=== PATIENT | female | born 1975 | race Caucasian/White ===

== ENCOUNTER 2020-08-24 23:43 | Emergency (ER) | payer BC, SELFPAY ==
[2020-08-25] MEDS ORDERED: MORPHINE 4 MG/ML SYR ONE (00:24)
[2020-08-25] MEDS ORDERED: ONDANSETRON 4 MG/2 ML VIAL ONE (00:25)
[2020-08-25 00:47] LABS: Albumin 3.8 g/dL (3.4-5.0); Bilirubin Direct 0.1 mg/dL (0-0.2); Bilirubin Total 0.4 mg/dL (0.2-1.0); Potassium 3.3 mmol/L (3.5-5.1); Protein, Total 7.1 g/dL (6.4-8.2)
[2020-08-25] MEDS ORDERED: MORPHINE 2 MG/ML SYR ONE ×2 (01:11→01:26)
[2020-08-25 01:48] LABS: Absolute Lymphocytes (CBC) 1.3 K/uL (0.7-4.9); Basophils % 0.4 % (0-1.3); Hematocrit 34.9 % (36.0-45.0); Lymphocytes % 11.7 % (15.3-44.8); MPV 8.1 fL (7.6-11.3); RBC Red Blood Cell Count 4.57 M/uL (3.86-4.86)
[2020-08-25] MEDS ORDERED: NA CHLORIDE 0.9% 1,000 ML ONE (02:50)
[2020-08-25] MEDS ORDERED: TAMSULOSIN 0.4 MG SR CAP ONE (02:50)
[2020-08-25] MEDS ORDERED: KETOROLAC 30 MG/ML INJ ONE (02:50)
--- NOTE | 2020-08-25 03:12 | EDPHYS ---
Physician Documentation [facility] Name: Lori Sarkar Age: 45 yrs Sex: Female : 1975 Arrival Date: 08/24/2020 Time: 23:49 Bed 20 Private MD: ED Physician Ventura Crump HPI: 08/25 00:04 This 45 yrs old Female presents to ER via EMS with complaints of Pelvic Pain, jmm Urinary Problem. 00:04 Onset: The symptoms/episode began/occurred acutely, just prior to arrival. Associated jmm signs and symptoms: Pertinent positives:. This is a 45 year old female that presents to the ED with complaints of pelvic pain and dysuria beginning just prior to arrival. Patient states having kidney stones in the past but not as intense as tonight. . Historical: - Allergies: 08/24 23:56 Sulfa (Sulfonamide Antibiotics); sg - PMHx: 08/25 00:33 fertility issues; Ectopic x2; sg - PSHx: 08/24 23:56 Gastric Bypass; sg - Immunization history:: Adult Immunizations. - Social history:: Smoking status: Patient denies any tobacco usage or history of. ROS: 08/25 00:04 Constitutional: Negative for fever, chills, and weight loss, Cardiovascular: Negative jmm for chest pain, palpitations, and edema, Respiratory: Negative for shortness of breath, cough, wheezing, and pleuritic chest pain. Abdomen/GI: Positive for abdominal pain. : Positive for pelvic pain. All other systems are negative. Exam: 00:04 Head/Face: atraumatic. Eyes: EOMI, no conjunctival erythema appreciated ENT: Moist jmm Mucus Membranes Neck: Trachea midline, Supple Chest/axilla: Normal chest wall appearance and motion. Cardiovascular: Regular rate and rhythm. No edema appreciated Respiratory: Normal respirations, no respiratory distress appreciated Abdomen/GI: Non distended, soft Back: Normal ROM Skin: General appearance color normal MS/ Extremity: Moves all extremities, no obvious deformities appreciated, no edema noted to the lower extremities Neuro: Awake and alert, normal gait Psych: Behavior is normal, Mood is normal, Patient is cooperative and pleasant 00:04 Constitutional: The patient appears alert, awake, in obvious pain. Vital Signs: 08/24 23:53 BP 146 / 77; Pulse 72; Resp 18; Temp 97.7; Pulse Ox 99% on R/A; Pain 4/10; sg 08/25 01:42 BP 170 / 94; Pulse 56; Resp 16; Pulse Ox 99% on R/A; sg 02:40 BP 172 / 92; Pulse 60; Resp 17; Temp 97.9; Pulse Ox 96% on R/A; Pain 6/10; sg 04:16 BP 139 / 96; Pulse 79; Resp 18; Pulse Ox 100% on R/A; Pain 3/10; lp1 MDM: 00:[address] [facility] 03:04 Data reviewed: vital signs, nurses notes. Counseling: I had a detailed discussion with bryant the patient and/or guardian regarding: the historical points, exam findings, and any diagnostic results supporting the discharge/admit diagnosis, lab results, radiology results, the need for outpatient follow up, to return to the emergency department if symptoms worsen or persist or if there are any questions or concerns that arise at home. ED course: CT reveals distal ureteral stone. Labs otherwise unremarkable. Pain decreased in the ED. Patient is advised to follow up with urology for further evaluation. Patient is otherwise given strict return precautions. Patient understood and agrees with the plan of care. . 08/25 00:04 Order name: Basic Metabolic Panel; Complete Time: 00:55 08/25 00:04 Order name: CBC with Diff; Complete Time: 01:58 08/25 00:04 Order name: Hepatic Function; Complete Time: 00:55 08/25 00:04 Order name: Lipase; Complete Time: 00:55 08/25 00:04 Order name: Test, Serum; Complete Time: 00:42 08/25 00:22 Order name: CT Abd/Pelvis - IV Contrast Only [facility] 08/25 00:04 Order name: IV Saline Lock; Complete Time: 00:04 08/25 00:04 Order name: Labs collected and sent; Complete Time: 00:04 sg Administered Medications: 00:23 Drug: morphine 4 mg Route: IVP; Site: left antecubital; sg 00:48 Follow up: Response: No adverse reaction; Pain is decreased; RASS: Drowsy (-1) sg 00:23 Drug: Zofran (Ondansetron) 4 mg Route: IVP; Site: left antecubital; sg 00:48 Follow up: Response: No adverse reaction sg 01:20 Drug: morphine 4 mg Route: IVP; Site: left antecubital; sg 01:59 Follow up: Response: No adverse reaction; Pain is unchanged, physician notified; RASS: sg Drowsy (-1) 02:47 Drug: NS 0.9% 1000 ml Route: IV; Rate: 1 bolus; Site: left antecubital; sg 04:18 Follow up: IV Status: Completed infusion; IV Intake: 800ml lp1 02:47 Drug: Ketorolac 30 mg Route: IVP; Site: left antecubital; sg 04:18 Follow up: Response: No adverse reaction lp1 02:48 Drug: Flomax 0.4 mg Route: PO; sg 04:18 Follow up: Response: No adverse reaction lp1 Disposition: 06:52 Co-signature as Attending Physician, Ventura Crump MD. [email or web address] Disposition: 08/25/20 03:11 Discharged to Home. Impression: Calculus of ureter. - Condition is Stable. - Discharge Instructions: Kidney Stones. - Prescriptions for Cephalexin 500 mg Oral Capsule - take 1 capsule by ORAL route every 12 hours for 10 days; 20 capsule. Tylenol- Codeine #3 300-30 mg Oral Tablet - take 2 tablet by ORAL route every 6 hours As needed; 6 tablet. Flomax 0.4 mg Oral Capsule, Sust. Release 24 hr - take 1 capsule by ORAL route once daily 1/2 hour following the same meal each day; 30 capsule. - Medication Reconciliation Form, Thank You Letter, Antibiotic Education, Prescription Opioid Use form. - Follow up: Private Physician; When: 2 - 3 days; Reason: Recheck today's complaints, Continuance of care, Re-evaluation by your physician. Signatures: Dispatcher [employer] Pio Tay RN RN sg Ghassan Leblanc PA PA jmm Pena, Laura, RN RN 1 Ventura Crump MD MD [email or web address] Corrections: (The following items were deleted from the chart) 05:18 03:11 08/25/2020 03:11 Discharged to Home. Impression: Calculus of ureter. Condition is lp1 Stable. Discharge Instructions: Kidney Stones. Prescriptions for Cephalexin 500 mg Oral Capsule - take 1 capsule by ORAL route every 12 hours for 10 days; 20 capsule, Tylenol-Codeine #3 300-30 mg Oral Tablet - take 2 tablet by ORAL route every 6 hours As needed; 6 tablet, Flomax 0.4 mg Oral Capsule, Sust. Release 24 hr - take 1 capsule by ORAL route once daily 1/2 hour following the same meal each day; 30 capsule. and Forms are Medication Reconciliation Form, Thank You Letter, Antibiotic Education, Prescription Opioid Use. Follow up: Private Physician; When: 2 - 3 days; Reason: Recheck today's complaints, Continuance of care, Re-evaluation by your physician. bryant
--- NOTE | 2020-08-25 03:12 | ER ---
[facility] Name: Lori Sarkar Age: 45 yrs Sex: Female : 1975 Arrival Date: 08/24/2020 Time: 23:49 Bed 20 Private MD: Diagnosis: Calculus of ureter Presentation: 08/24 23:53 Chief complaint: EMS states: pt c/o R side pelvic pain and R groin pain for 1-2 hours sg [employer], pt reports inability to urinate that began today as well, pt reports having a IUD that is , inserted by . Coronavirus screen: Client denies travel out of the [place] in the last 14 days. At this time, the client does not indicate any symptoms associated with coronavirus-19. Ebola Screen: Patient negative for fever greater than or equal to 101.5 degrees Fahrenheit, and additional compatible Ebola Virus Disease symptoms Patient denies exposure to infectious person. Patient denies travel to an Ebola-affected area in the 21 days before illness onset. No symptoms or risks identified at this time. Initial Sepsis Screen: Does the patient meet any 2 criteria? No. Patient's initial sepsis screen is negative. Does the patient have a suspected source of infection? No. Patient's initial sepsis screen is negative. Risk Assessment: Do you want to hurt yourself or someone else? Patient reports no desire to harm self or others. Onset of symptoms was August 24, 2020. Care prior to arrival: None. Transition of care: patient was not received from another setting of care. 23:53 Method Of Arrival: EMS: [facility] sg 23:53 Acuity: NEELA 2 sg Historical: - Allergies: 23:56 Sulfa (Sulfonamide Antibiotics); sg - PMHx: 08/25 00:33 fertility issues; Ectopic x2; sg - PSHx: 08/24 23:56 Gastric Bypass; sg - Immunization history:: Adult Immunizations. - Social history:: Smoking status: Patient denies any tobacco usage or history of. Screenin/26 00:00 Abuse screen: Denies threats or abuse. Denies injuries from another. Nutritional sg screening: No deficits noted. Tuberculosis screening: No symptoms or risk factors identified. Never had TB. Fall Risk None identified. Assessment: 00:00 General: Appears in no apparent distress. uncomfortable, ill, unkempt, well nourished, sg Behavior is cooperative, fussy, restless. Pain: Complains of pain in groin and right femoral area Pain radiates to right mid back Quality of pain is described as aching, sharp. Neuro: Level of Consciousness is awake, alert, obeys commands, Oriented to person, place, time, Speech is normal, Facial symmetry appears normal. Cardiovascular: Patient's skin is warm and dry. Chest pain is denied. Respiratory: Airway is patent Respiratory effort is even, unlabored, Respiratory pattern is regular, symmetrical. GI: No signs and/or symptoms were reported involving the gastrointestinal system. : Reports inability to void, completely. pain in right in suprapubic area lower quadrant(s) in lower back and groin. EENT: No signs and/or symptoms were reported regarding the EENT system. Derm: Skin is pink, warm \T\ dry. Musculoskeletal: Circulation, motion, and sensation intact. Range of motion: intact in all extremities. 00:11 Reassessment: pt ambulatory to ED restroom but reports was unable to obtain a sample, sg reports small amount of urine output. 00:15 Reassessment: pt back in exam room, pt observed to be pacing in the exam room, reports sg pain /, Joy CONTRERAS at bedside assessing pt, pt medicated as ordered. Reassessment: pt calm, relaxed, laying supine in bed at this time, awaiting new orders, lab reports blood specimen hemolyzed, a recollect of the CBC has been ordered, will obtain new specimen at this time. 04:17 Reassessment: Patient appears in no apparent distress at this time. Patient is alert, lp1 oriented x 3, equal unlabored respirations, skin warm/dry/pink. Patient demonstrates understanding of discharge instructions and medications prescribed. 04:18 Reassessment: Patient waiting for ride to arrive for discharge. lp1 Vital Signs: 08/24 23:53 BP 146 / 77; Pulse 72; Resp 18; Temp 97.7; Pulse Ox 99% on R/A; Pain 4/10; sg 08/25 01:42 BP 170 / 94; Pulse 56; Resp 16; Pulse Ox 99% on R/A; sg 02:40 BP 172 / 92; Pulse 60; Resp 17; Temp 97.9; Pulse Ox 96% on R/A; Pain 6/10; sg 04:16 BP 139 / 96; Pulse 79; Resp 18; Pulse Ox 100% on R/A; Pain 3/10; lp1 ED Course: 08/24 23:49 Patient arrived in ED. bb 23:53 Arm band placed on. sg 23:55 Triage completed. sg 08/25 00:00 Initial lab(s) drawn, by me, sent to lab. Inserted saline lock: 20 gauge in left sg antecubital area, using aseptic technique. Blood collected. 00:08 Ghassan Leblanc PA is PHCP. [facility] 00:08 Ventura Crump MD is Attending Physician. [facility] 00:09 Pio Kessler RN is Primary Nurse. sg 01:23 CT Abd/Pelvis - IV Contrast Only In Process Unspecified. EDMS 02:48 Awaiting disposition. sg 02:49 Report given to MILVIA Jasso- Charge Nurse. sg 04:17 No provider procedures requiring assistance completed. IV discontinued, No lp1 redness/swelling at site. Pressure dressing applied. Administered Medications: 00:23 Drug: morphine 4 mg Route: IVP; Site: left antecubital; sg 00:48 Follow up: Response: No adverse reaction; Pain is decreased; RASS: Drowsy (-1) sg 00:23 Drug: Zofran (Ondansetron) 4 mg Route: IVP; Site: left antecubital; sg 00:48 Follow up: Response: No adverse reaction sg 01:20 Drug: morphine 4 mg Route: IVP; Site: left antecubital; sg 01:59 Follow up: Response: No adverse reaction; Pain is unchanged, physician notified; RASS: sg Drowsy (-1) 02:47 Drug: NS 0.9% 1000 ml Route: IV; Rate: 1 bolus; Site: left antecubital; sg 04:18 Follow up: IV Status: Completed infusion; IV Intake: 800ml lp1 02:47 Drug: Ketorolac 30 mg Route: IVP; Site: left antecubital; sg 04:18 Follow up: Response: No adverse reaction lp1 02:48 Drug: Flomax 0.4 mg Route: PO; sg 04:18 Follow up: Response: No adverse reaction lp1 Intake: 04:18 IV: 800ml; Total: 800ml. lp1 Outcome: 03:11 Discharge ordered by . bryant 04:17 Discharged to home ambulatory, with friend. lp1 04:17 Condition: good 04:17 Discharge instructions given to patient, Instructed on discharge instructions, follow up and referral plans. medication usage, Demonstrated understanding of instructions, follow-up care, medications, Prescriptions given X 3. 05:18 Patient left the ED. lp1 Signatures: Dispatcher [employer] Pio Tay RN RN Ghassan Ball PA PA jmm Ballard, Brenda, RN RN bb Zena Tobin, MILVIA RN lp1 Corrections: (The following items were deleted from the chart) 01:59 01:40 Response: No adverse reaction; Pain is unchanged, physician notified nick romero
[2020-08-25 05:27] VITALS: TEMP 97.9
[2020-08-25 05:29] VITALS: BP 139/96; O2SAT 100
--- NOTE | 2020-08-25 21:44 | RAD REPORT ---
EXAM DESCRIPTION: CT - Abdomen Pelvis W Contrast - 08/25/2020 6:46 am CLINICAL HISTORY: Lower abdominal pain, pelvic pain TECHNIQUE: Contiguous axial images obtained through the abdomen and pelvis following the uneventful administration of IV contrast. Coronal and sagittal reformatted images were provided. This exam was performed according to our departmental dose-optimization program, which includes autom ated exposure control, adjustment of the mA and/or kV according to patient size and/or use of iterati ve reconstruction technique. COMPARISON: None available for comparison. FINDINGS: Lung bases: Minimal right basilar subsegmental atelectasis/pleural parenchymal scar. Liver: Unremarkable Gallbladder and biliary system: Unremarkable Pancreas: Unremarkable Spleen: Unremarkable Adrenals: Unremarkable Kidneys: Mild to moderate right hydroureteronephrosis with delayed cortical nephrogram, perinephric a nd periureteral stranding. 3 mm distal right ureteral calculus (series 601 image 78, series 602 image 77 and series 603 image 54). 8mm left renal cortical hypodensity which is too small to characterize. Bowel: Prior gastric bypass. Moderate stool. No obstruction. No appreciable mucosal thickening. Appendix: Normal caliber appendix. No findings to suggest acute appendicitis. Urinary bladder: Unremarkable Reproductive: Intrauterine device at the lower uterine segment. 2 cm left ovarian cyst. The right ova ry is unremarkable as visualized. Lymph nodes: No pathologically enlarged lymph nodes. Peritoneum: No focal fluid collection. No free air. Vessels: No abdominal aortic aneurysm. Abdominal wall: Unremarkable Bones: Multilevel spondylosis. No acute fracture. 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 IMPRESSION: 1. Mildly to moderately obstructing 3 mm distal right ureteral calculus. 2. 2 cm benign appearing left ovarian cyst. No follow-up imaging is recommended. Reference: J Am Demario Radiol 2013;10:675-681 3. Intrauterine device located at the lower uterine segment. 4. Other findings as above. Electronically signed by: Reagan Reeves MD 08/25/2020 1:54 AM CDT Due to temporary technical issues with the PACS/Fluency reporting system, reports are being signed by the in house radiologist without review as a courtesy to ensure prompt reporting. The interpreting r adiologist is fully responsible for the content of the report.
== END 2020-08-25 05:18 | disposition home or self-care (01) ==
LOC: ER 23:43
DX: N20.1 Calculus of ureter (principal); Z88.2 Allergy status to sulfonamides; Z98.84 Bariatric surgery status
CPT/HCPCS: 36415; 74177; 80048; 80076; 83690; 84703; 85025; 96361; 96374; 96375; 99284; J2270; J2405; J7030; Q9967

== ENCOUNTER 2023-06-08 01:28 | Emergency (ER) | payer SELFPAY ==
--- OUTSIDE RECORDS SUMMARY | 2023-06-08 01:31 | XMS REPORT | Continuity of Care Document ---
:1975 Author Organization [facility] t Address [address] [place] [address] Care Team Providers Name Role Phone Kleber Attending Clinician Unavailable Kleber Admitting Clinician Unavailable Problems This patient has no known problems. Allergies, Adverse Reactions, Alerts This patient has no known allergies or adverse reactions. Medications This patient has no known medications. Procedures This patient has no known procedures. Encounters Start End Encounter Admission Attending Care Care Encounter Source Date/Time Date/Time Type Type Clinicians Facility Department ID 2022-08-06 2022-08-06 Outpatient Rosibel_ DOUGLAS AO [id number] Fariha 00:00:00 00:00:00 Bibi [id number] Orth ope dic Sports Medicin e Results This patient has no known results.
[2023-06-08 02:26] LABS: Absolute Lymphocytes (CBC) 1.6 K/uL (0.7-4.9); Hematocrit 34.4 % (36.0-45.0); Lymphocytes % 25.2 % (15.3-44.8); MCV 76.1 fL (80-100); MPV 7.3 fL (7.6-11.3); RBC Red Blood Cell Count 4.52 M/uL (3.86-4.86)
[2023-06-08 02:28] LABS: Protime INR 1.08
[2023-06-08 02:38] LABS: ALT/SGPT 25 U/L (13-56); AST/SGOT 19 U/L (15-37); Albumin 3.5 g/dL (3.4-5.0); Alkaline Phosphatase 87 U/L (45-117); BUN Blood Urea Nitrogen 19 mg/dL (7-18); Bicarbonate 27 mEq/L (21-32); Bilirubin Total 0.3 mg/dL (0.2-1.0); Glomerular Filtration Rate 85 ml/min (=/>90); Glucose Level 143 mg/dL (74-106); Potassium 2.9 mEq/L (3.5-5.1); Protein, Total 7.2 g/dL (6.4-8.2); Sodium Level 138 mEq/L (136-145)
[2023-06-08 02:48] LABS: Bilirubin Direct < 0.1 mg/dL (0-0.2); Bilirubin Indirect, Calculated ND mg/dL (0.2-0.8)
[2023-06-08] MEDS ORDERED: HALOPERIDOL LACT 5 MG/ML INJ ONE (03:07)
[2023-06-08] MEDS ORDERED: KCL 20 MEQ/100 mL IVPB 100 ML IV ONE (04:03)
[2023-06-08] MEDS ORDERED: NA CHLORIDE 0.9% 1,000 ML ONE (04:03)
--- NOTE | 2023-06-08 08:31 | EDPHYS ---
Physician Documentation [facility] Name: Lori Sarkar Age: 47 yrs Sex: Female : 1975 Arrival Date: 06/08/2023 Time: 01:28 Bed 19 Private MD: ED Physician Miky Minor HPI: 06/08 01:40 This 47 yrs old Female presents to ER via Unassigned with complaints of Psych Problem. cp 01:40 The patient presents to the emergency department with psychosis, has experienced cp auditory hallucinations, voice of her brother telling her boyfriend wants to hurt her, a history of substance abuse, Type: methamphetamines, the amount of abuse is unknown. 01:40 Onset: The symptoms/episode began/occurred yesterday. cp 01:40 Associated signs and symptoms: Pertinent positives; hallucinations, substance abuse, cp Pertinent negatives: abdominal pain, chest pain, fever, headache, homicidal ideation, paranoia, suicide ideation. Patient admits to ingesting unknown amount of methamphetamine and consuming an alcoholic drink yesterday afternoon. 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 - Social history:: Smoking status: Patient reports the use of cigarette tobacco products, unknown amount. ROS: 01:45 Constitutional: Negative for body aches, chills, fever, poor PO intake. cp 01:45 Eyes: Negative for injury, pain, redness, and discharge. cp 01:45 Neuro: Negative for dizziness, headache, seizure activity, syncope. cp 01:45 Psych: Positive for drug dependence, auditory hallucinations, Negative for visual hallucinations, homicidal ideation, suicide gesture, suicidal ideation. 01:45 ENT: Negative for drainage from ear(s), ear pain, sore throat, difficulty swallowing, cp difficulty handling secretions. 01:45 Cardiovascular: Negative for chest pain, edema, palpitations. 01:45 Respiratory: Negative for cough, shortness of breath, wheezing. 01:45 Abdomen/GI: Negative for abdominal pain, nausea, vomiting, and diarrhea. 01:45 : Negative for urinary symptoms. 01:45 All other systems are negative. Exam: 01:42 ECG was reviewed by the Attending Physician. cp 01:50 Constitutional: The patient appears in no acute distress, alert, awake, cp non-diaphoretic, non-toxic, well developed, well nourished. 01:50 Head/Face: Normocephalic, atraumatic. cp 01:50 Eyes: Periorbital structures: appear normal, Pupils: equal, round, and reactive to light and accomodation, Conjunctiva: normal, no exudate, no injection, Sclera: no appreciated abnormality, Lids and lashes: appear normal, bilaterally. 01:50 ENT: External ear(s): are unremarkable, Ear canal(s): are normal, clear, TM's: dullness, bilaterally, Nose: is normal, Mouth: is normal, Posterior pharynx: Airway: no evidence of obstruction, patent. 01:50 Neck: ROM/movement: is normal, is supple, without pain, no range of motions limitations, no meningismus, no nuchal rigidity. 01:50 Chest/axilla: Inspection: normal, Palpation: is normal, no crepitus, no tenderness. 01:50 Cardiovascular: Rate: normal, Rhythm: regular, Edema: is not appreciated, JVD: is not appreciated. 01:50 Respiratory: the patient does not display signs of respiratory distress, Respirations: normal, no use of accessory muscles, no retractions, labored breathing, is not present, Breath sounds: are clear throughout, no decreased breath sounds, no stridor, no wheezing. 01:50 Abdomen/GI: Inspection: abdomen appears normal, Palpation: abdomen is soft and non-tender, in all quadrants. 01:50 Neuro: Orientation: to person, place \T\ time. Mentation: able to follow commands, Motor: moves all fours, strength is normal, Sensation: is normal. Vital Signs: 01:44 BP 168 / 106; Pulse 86; Resp 13; Temp 98.1; Pulse Ox 100% ; Weight 77.11 kg; Height 5 vc1 ft. 7 in. ; Pain 0/10; 02:45 BP 178 / 110; Pulse 80; Resp 14; Pulse Ox 100% ; vc1 03:30 BP 158 / 95; Pulse 86; Resp 14; Pulse Ox 100% ; vc1 04:15 BP 118 / 72; Pulse 66; Resp 17; Pulse Ox 95% ; vc1 05:00 BP 114 / 75; Pulse 64; Resp 15; Pulse Ox 97% ; vc1 06:00 BP 140 / 90; Pulse 64; Resp 16; Pulse Ox 98% ; vc1 06:30 BP 129 / 85; Pulse 62; Resp 15; Pulse Ox 97% ; vc1 07:00 BP 146 / 92; Pulse 68; Resp 18; Pulse Ox 98% ; bp 08:49 BP 129 / 82; Pulse 62; Resp 15; Pulse Ox 98% ; bp 01:44 Body Mass Index 26.63 (77.11 kg, 170.18 cm) vc1 01:44 Pain Scale: Adult vc1 MDM: 01:38 Patient medically screened. cp 06/08 01:37 Order name: Acetaminophen; Complete Time: 03:54 cp 06/08 01:37 Order name: Basic Metabolic Panel; Complete Time: 03:54 cp 06/08 01:37 Order name: CBC with Diff; Complete Time: 03:54 cp 06/08 01:37 Order name: ETOH Level; Complete Time: 03:54 cp 06/08 01:37 Order name: Hepatic Function; Complete Time: 03:54 cp 06/08 01:37 Order name: PT-INR; Complete Time: 03:54 cp 06/08 01:37 Order name: Ptt, Activated; Complete Time: 03:54 cp 06/08 01:37 Order name: Salicylate; Complete Time: 03:54 cp 06/08 01:37 Order name: EKG; Complete Time: 01:38 cp 06/08 01:37 Order name: EKG - Nurse/Tech; Complete Time: 01:54 cp 06/08 01:37 Order name: IV Saline Lock; Complete Time: 01:54 cp 06/08 01:37 Order name: Labs collected and sent; Complete Time: 01:54 cp 06/08 01:37 Order name: Suicide Screening (Burt); Complete Time: 01:54 cp EC:42 Rate is 81 beats/min. Rhythm is regular. WI interval is normal. QRS interval is cp prolonged at 106 msec. QT interval is normal. T waves are Inverted in lead aVR. Interpreted by me. Reviewed by me. Administered Medications: 02:08 CANCELLED (Physician Discretion): HALdol (as decanoate) IM 10 mg IM once cp 02:57 Drug: HALdol (as decanoate) IM 10 mg Route: IM; Site: right gluteus; vc1 06:48 Follow up: Response: No adverse reaction; Marked relief of symptoms vc1 04:10 Drug: Potassium Chloride IV 20 mEq Route: IV; Rate: calculated rate; Site: right vc1 antecubital; 08:50 Follow up: IV Status: Completed infusion; IV Intake: 100ml bp 04:10 Drug: NS 0.9% IV 1000 ml Route: IV; Rate: 500 ml/hr; Site: right antecubital; vc1 08:50 Follow up: IV Status: Completed infusion; IV Intake: 1000ml bp 07:00 Drug: Potassium PO Effervescent Tablet 50 mEq Route: PO; bp 08:39 Follow up: Response: No adverse reaction bp Disposition Summary: 06/08/23 08:30 Discharge Ordered Location: Home kdr Problem: new kdr Symptoms: have improved kdr Condition: Stable kdr Diagnosis - Other psychoactive substance abuse - Methamphetamine kdr - Altered mental status, unspecified kdr Followup: kdr - With: Private Physician - When: 2 - 3 days - Reason: If symptoms return, Further diagnostic work-up, Recheck today's complaints, Continuance of care, Re-evaluation by your physician Discharge Instructions: - Discharge Summary Sheet kdr - Confusion kdr - Methamphetamines Use Disorder kdr - Delirium kdr Forms: - Medication Reconciliation Form kdr - Thank You Letter kdr - [email or web address] kdr - Work release form bp Signatures: Dispatcher [employer] EDMT Miky Minor MD MD kdr Akbar Denton PA PA cp Benedicto Monae, RN RN bp Julisa Lisa RN RN vc1 Corrections: (The following items were deleted from the chart) 02:08 02:08 HALdol (as decanoate) IM 10 mg IM once ordered. cp cp
--- NOTE | 2023-06-08 08:31 | ER ---
Nurse's Notes [facility] Name: Lori Sarkar Age: 47 yrs Sex: Female : 1975 Arrival Date: 06/08/2023 Time: 01:28 Bed 19 Private MD: Diagnosis: Other psychoactive substance abuse-Methamphetamine;Altered mental status, unspecified Presentation: 06/08 01:44 Chief complaint: Patient states: I hear my mom and brother telling me someone is going vc1 to hurt me. EMS states: We werer called out for Auditory Hallucinations. She can hear her mom who has been for a while and her brother talking to her. She can't get ahold of her brother so she is worried about him. Coronavirus screen: Vaccine status: Patient reports being unvaccinated. At this time, the client does not indicate any symptoms associated with coronavirus-19. Ebola Screen: Patient negative for fever greater than or equal to 101.5 degrees Fahrenheit, and additional compatible Ebola Virus Disease symptoms Patient denies exposure to infectious person. Patient denies travel to an Ebola-affected area in the 21 days before illness onset. No symptoms or risks identified at this time. Initial Sepsis Screen: Does the patient meet any 2 criteria? No. Patient's initial sepsis screen is negative. Does the patient have a suspected source of infection? No. Patient's initial sepsis screen is negative. Risk Assessment: Do you want to hurt yourself or someone else? Patient reports no desire to harm self or others. Onset of symptoms was June 08, 2023. 01:44 Method Of Arrival: EMS: [facility] vc1 01:44 Acuity: NEELA 3 vc1 Triage Assessment: 01:51 General: Appears distressed, uncomfortable, Behavior is anxious. Pain: Denies pain. vc1 EENT: No deficits noted. No signs and/or symptoms were reported regarding the EENT system. Neuro: Reports auditory hallucinations. Cardiovascular: No deficits noted. Respiratory: Airway is patent Respiratory effort is even, unlabored, Respiratory pattern is regular, symmetrical. GI: No deficits noted. No signs and/or symptoms were reported involving the gastrointestinal system. : No deficits noted. No signs and/or symptoms were reported regarding the genitourinary system. Derm: No deficits noted. No signs and/or symptoms reported regarding the dermatologic system. Musculoskeletal: No deficits noted. No signs and/or symptoms reported regarding the musculoskeletal system. REHANGER: 08:50 LMP N/A - Irregular menses bp Historical: - Allergies: 01:51 Sulfa (Sulfonamide Antibiotics); vc1 - Home Meds: 01:51 None [Active]; vc1 - PMHx: 01:51 ectopic X2; fertility issues; vc1 - PSHx: 01:51 None; vc1 - Immunization history:: Client reports having NOT received the Covid vaccine. - Social history:: Smoking status: Patient reports the use of cigarette tobacco products, unknown amount. Screenin:54 [facility] ED Fall Risk Assessment (Adult) History of falling in the last 3 months, vc1 including since admission No falls in past 3 months (0 pts) Confusion or Disorientation Yes (5 pts) Intoxicated or Sedated Yes (3 pts) Impaired Gait No (0 pts) Mobility Assist Device Used No (0 pt) Altered Elimination No (0 pt). Abuse screen: Denies threats or abuse. Nutritional screening: No deficits noted. Tuberculosis screening: No symptoms or risk factors identified. Assessment: 03:30 Reassessment: No changes from previously documented assessment. Patient and/or family vc1 updated on plan of care and expected duration. Pain level reassessed. Patient is alert, oriented x 3, equal unlabored respirations, skin warm/dry/pink. 04:15 Reassessment: Patient in deep sleep do to medication administered. Potassium PO ordered vc1 but may be given once pt wakes up enough to drink. 04:30 Reassessment: No changes from previously documented assessment. Pt resting comfortably, vc1 no complaints at this time. 05:30 Reassessment: No changes from previously documented assessment. Pt resting comfortably, vc1 no complaints at this time. 06:30 Reassessment: No changes from previously documented assessment. Pt resting comfortably, vc1 no complaints at this time. 07:00 Reassessment: REPORT FROM DAREN STEEL. 47YO FEMALE PRESENT WITH HALLUCINATIONS 2/2 METH bp ABUSE. 08:47 Reassessment: PT CALLING FOR TRANSPORT. AMBULATING WITH STEADY GAIT. bp Psych: 01:52 [place] Suicide Severity Screening: In the past month, have you wished you were vc1 or wished you could go to sleep and not wake up? Patient responds "No." "In the past month, have you actually had any thoughts of killing yourself?" Patient responds "no." "In your lifetime, have you ever done anything, started to do anything, or prepared to do anything to end your life?" Patient responds "no.". Subjective: Patient's mood is sad, Delusions are denied, Hallucinations are auditory. Objective: Patient is cooperative, Speech is soft. Interventions: Patient placed in hospital gown. Urine collected and sent for urine drug test. Patient uses methamphetamines "a dab". Commitment: Pt not suicide risk. 08:49 Safety Checks: N/A. bp Vital Signs: 01:44 BP 168 / 106; Pulse 86; Resp 13; Temp 98.1; Pulse Ox 100% ; Weight 77.11 kg; Height 5 vc1 ft. 7 in. ; Pain 0/10; 02:45 BP 178 / 110; Pulse 80; Resp 14; Pulse Ox 100% ; vc1 03:30 BP 158 / 95; Pulse 86; Resp 14; Pulse Ox 100% ; vc1 04:15 BP 118 / 72; Pulse 66; Resp 17; Pulse Ox 95% ; vc1 05:00 BP 114 / 75; Pulse 64; Resp 15; Pulse Ox 97% ; vc1 06:00 BP 140 / 90; Pulse 64; Resp 16; Pulse Ox 98% ; vc1 06:30 BP 129 / 85; Pulse 62; Resp 15; Pulse Ox 97% ; vc1 07:00 BP 146 / 92; Pulse 68; Resp 18; Pulse Ox 98% ; bp 08:49 BP 129 / 82; Pulse 62; Resp 15; Pulse Ox 98% ; bp 01:44 Body Mass Index 26.63 (77.11 kg, 170.18 cm) vc1 01:44 Pain Scale: Adult vc1 ED Course: 01:35 Patient arrived in ED. rv1 01:36 Akbar Denton PA is PHCP. cp 01:36 Miky Minor MD is Attending Physician. cp 01:43 Daren Lisa RN is Primary Nurse. vc1 01:51 Triage completed. vc1 01:52 Arm band placed on right wrist. vc1 01:53 Patient has correct armband on for positive identification. Bed in low position. Call vc1 light in reach. Client placed on continuous cardiac and pulse oximetry monitoring. NIBP monitoring applied. 01:53 Inserted saline lock: 20 gauge in right antecubital area, using aseptic technique. mc5 Blood collected. 06:49 No provider procedures requiring assistance completed. vc1 07:05 Primary Nurse role handed off by Daren Lisa RN bp 07:05 Benedicto Monae, RN is Primary Nurse. bp 08:48 IV discontinued, intact, bleeding controlled, No redness/swelling at site. Pressure bp dressing applied. Administered Medications: 02:08 CANCELLED (Physician Discretion): HALdol (as decanoate) IM 10 mg IM once cp 02:57 Drug: HALdol (as decanoate) IM 10 mg Route: IM; Site: right gluteus; vc1 06:48 Follow up: Response: No adverse reaction; Marked relief of symptoms vc1 04:10 Drug: Potassium Chloride IV 20 mEq Route: IV; Rate: calculated rate; Site: right vc1 antecubital; 08:50 Follow up: IV Status: Completed infusion; IV Intake: 100ml bp 04:10 Drug: NS 0.9% IV 1000 ml Route: IV; Rate: 500 ml/hr; Site: right antecubital; vc1 08:50 Follow up: IV Status: Completed infusion; IV Intake: 1000ml bp 07:00 Drug: Potassium PO Effervescent Tablet 50 mEq Route: PO; bp 08:39 Follow up: Response: No adverse reaction bp Medication: 01:54 VIS not applicable for this client. vc1 Intake: 08:50 IV: 1000ml; Total: 1000ml. bp 08:50 IV: 100ml; Total: 1100ml. bp Outcome: 08:30 Discharge ordered by . kdr 08:49 Discharged to home bp 08:49 Condition: stable 08:49 Discharge instructions given to patient, Instructed on discharge instructions, follow up and referral plans. Demonstrated understanding of instructions, follow-up care. 09:23 Patient left the ED. 3 Signatures: Miky Minor MD MD kdr Page, Corey, PA PA cp Benedicto Monae, RN RN bp Daren Lisa RN RN vc1 Lakisha Gates RN RN 3 Elizabeth Garcia [facility] Jocelyne Schmitz 5
[2023-06-08 09:29] VITALS: TEMP 98.1
[2023-06-08 09:41] VITALS: O2SAT 98
[2023-06-08 09:42] VITALS: BP 129/82
--- NOTE | 2023-06-08 17:11 | EKG ---
Test Date: 2023-06-08 Test Time: 01:41:07 Community Administrator: JENNIFER MEASUREMENT RESULTS: Intervals: Rate: 81 ME: 166 QRSD: 106 QT: 404 QTc: 469 [place]: P: 47 ME: 166 QRS: 23 T: 22 INTERPRETIVE STATEMENTS: Normal sinus rhythm Normal ECG Compared to ECG 01/24/2013 19:16:16 Incomplete right bundle-branch block no longer present Electronically Signed On 06-08-23 17:09:40 CDT by Devon Vincent
== END 2023-06-08 09:23 | disposition home or self-care (01) ==
LOC: ER 01:28
DX: F15.10 Other stimulant abuse, uncomplicated (principal)
CPT/HCPCS: 36415; 80048; 80076; 80143; 80179; 82077; 85025; 85610; 85730; 93005; 96365; 96366; 96372; 99285; J1630; J3480; J7030